=== PATIENT | male | born 1950 | race Caucasian/White ===

== ENCOUNTER 2023-02-25 00:53 | Day surgery (SDC) | payer OTHER, SELFPAY ==
[2023-02-15 13:40] VITALS: BMI 36.6
[2023-02-25 11:31] VITALS: BP 130/81; PULSE 59; RESP 16; TEMP 36.1; O2SAT 99; BMI 36.2
--- NOTE | 2023-02-25 11:48 | WPDANESEPPF ---
Anes - Initial Pre Proc Eval Procedure: Operation Date: 02/25/23 12:30 Proposed Procedures p Screening Colonoscopy - Kg Bradley MD Date/Time: 02/25/23 11:48 Surgeon: Kg Bradley MD Pre Op Diagnosis: neoplasm screening Patient Data Age: 72 Gender: M Height: 1.78 m Weight: 114.6 kg Last Vital Signs Temp 97.0 F L 02/25/23 11:31 Pulse 59 L 02/25/23 11:31 Resp 16 02/25/23 11:31 BP 130/81 02/25/23 11:31 Pulse Ox 99 02/25/23 11:31 O2 Del Method Room Air 02/25/23 11:31 Allergies Allergy/AdvReac Type Severity Reaction Status Date / Time No Known Allergies Allergy Unknown Verified 02/25/23 11:30 Home Medications Medication Instructions Recorded Confirmed Type No Home Medications 01/17/23 02/25/23 History Patient hx anesthesia problems: none Family hx anesthesia problems: none Results Review: All pre-operative results and documents have been reviewed as part of the pre-operative evaluation. [facility] Family History Family History Father Patient's father is , Onset Age: 23 Other Cerebrovascular accident Family history of allergic disorder Family history of cardiovascular disease Social History Social History (Updated 01/25/23 @ 14:55 by Ely Low MA) Smoking status: Never smoker Alcohol intake: current Drinks per week: 1 Substance use: never Substance use type: does not use Lack of Transportation: No Lack of Food: Never True Current Housing: Decline to Answer Concerned About Future Housing: Decline to Answer Difficulty Paying Gas/Electric Bills: Decline to Answer Difficulty Paying for Meds: Decline to Answer Currently Unemployed: Decline to Answer Education: Decline to Answer Difficulty w/ Childcare or Family Care: Decline to Answer Living arrangements: alone Spiritual care concerns: No Anes - Eval Final PreProcedure Day of Procedure 02/25/23 11:48 Patient weight: obese Heart: regular rate and rhythm Lungs: clear to auscultation Airway: Mallampati scale class II Neurological: alert and oriented Last oral intake: >/= 8 hours ASA classification: II Emergent: no Anesthetic plan: proceed Anesthesia type and monitoring: general GIVS and standard monitoring Results Review: All pre-operative results and documents have been reviewed as part of the pre-operative evaluation. Informed Consent: The patient's anesthetic plan and its attendant risks and benefits were discussed with the patient/family/POA. Questions were solicited and answers provided to the satisfaction of the patient/family/POA.
[2023-02-25] MEDS: LACTATED RINGERS 1,000 ML 150 ML IV CONT (11:53)
--- NOTE | 2023-02-25 12:05 | PM.HPGS ---
History of Present Illness History of Present Illness Consent: Risks, benefits, and alternatives have been discussed and questions answered. Patient agrees to proceed with procedure. Chief complaint: neoplasm screening Narrative: Sven Murray is a 72 year old male here for first screening colonoscopy, had + cologuard Review of Systems Constitutional: Constitutional: Denies headache(s) and Denies weakness Eyes: Eyes: Denies blurry vision ENT: Reports Normal hearing present, Denies headache(s) and Denies neck pain Cardiovascular: Cardiovascular: Denies chest pain and Denies dyspnea Respiratory: Respiratory: Denies dyspnea Gastrointestinal: Gastrointestinal: Reports no additional gastrointestinal complaints Genitourinary: Genitourinary: Denies dysuria Musculoskeletal: Musculoskeletal: Denies neck pain Integumentary/Breasts: Skin/Breast: Denies dry skin Neurologic: Reports Normal hearing present, Denies headache(s) and Denies weakness Psychiatric: Psychiatric: Denies anxiety Endocrine: Endocrine: Denies change in body appearance Hematologic/Lymphatic: Hematologic/Lymphatic: Denies easy bleeding Allergic/Immunologic: Allergic/Immunologic: Denies urticaria PMFSH Past Medical History Medical History (Updated 02/25/23 @ 12:06 by Kg Bradley MD) Positive colorectal cancer screening using Cologuard test Family History Family History Father Patient's father is , Onset Age: 23 Other Cerebrovascular accident Family history of allergic disorder Family history of cardiovascular disease Social History Social History (Updated 01/25/23 @ 14:55 by Ely Low MA) Smoking status: Never smoker Alcohol intake: current Drinks per week: 1 Substance use: never Substance use type: does not use Lack of Transportation: No Lack of Food: Never True Current Housing: Decline to Answer Concerned About Future Housing: Decline to Answer Difficulty Paying Gas/Electric Bills: Decline to Answer Difficulty Paying for Meds: Decline to Answer Currently Unemployed: Decline to Answer Education: Decline to Answer Difficulty w/ Childcare or Family Care: Decline to Answer Living arrangements: alone Spiritual care concerns: No Meds Home Medications and Allergies Home Medications Medication Instructions Recorded Confirmed Type No Home Medications 01/17/23 02/25/23 History Allergies Allergy/AdvReac Type Severity Reaction Status Date / Time No Known Allergies Allergy Unknown Verified 02/25/23 11:30 Vital Signs Vital Signs - 24 hr 02/25/23 11:31 Temperature 97.0 F L Pulse Rate 59 L Respiratory Rate 16 Blood Pressure 130/81 Pulse Oximetry 99 Oxygen Delivery Room Air Exam Const: General: comfortable and no acute distress HENMT: Face/Nose/Sinus: Normal nares present Eyes: General: appearance normal, both eyes and all related structures Neck: Neck: no JVD Resp: Auscultation: clear to auscultation bilaterally Cardio: Rate: regular rate Rhythm: regular rhythm GI: Inspection: non-distended GI Palp: Yes Soft to palpation Skin: General skin exam: normal color Neuro: General: gait normal Speech: normal speech Extrem: General: normal to inspection Psych: Mental Status: mental status grossly normal Assessment and Plan Assessment and plan (1) Positive colorectal cancer screening using Cologuard test: Code(s): R19.5 - Other fecal abnormalities Status: Acute Assessment and Plan: colonoscopy
--- NOTE | 2023-02-25 12:39 | SUR.OPER ---
ASCENDING COLON POLYP UNRETRIEVED, DR JOHNSON MADE AWARE, NO NEW ORDERS.
[2023-02-25 12:46] VITALS: BP 114/73; PULSE 49; RESP 16; O2SAT 96
[2023-02-25 12:56] VITALS: BP 112/77; PULSE 50; RESP 16; O2SAT 97
[2023-02-25 13:05] VITALS: BP 123/74; PULSE 50; RESP 16; O2SAT 98
== END 2023-02-25 13:23 | disposition home or self-care (01) ==
PROVIDERS: PCP Emergency Medicine; Visit Provider Internal Medicine Gastroenterology
PROC: 0DJD8ZZ Inspection of Lower Intestinal Tract, Via Natural or Artificial Opening Endoscopic (ICD-10-PCS; CPT 45378; principal; 2023-02-25 12:30)
DX: Z12.11 Encounter for screening for malignant neoplasm of colon (principal); K63.5 Polyp of colon; K57.30 Diverticulosis of large intestine without perforation or abscess without bleeding; K64.8 Other hemorrhoids; R19.5 Other fecal abnormalities; Z82.49 Family history of ischemic heart disease and other diseases of the circulatory system; E66.9 Obesity, unspecified; Z68.36 Body mass index [BMI] 36.0-36.9, adult
CPT/HCPCS: 45385; 88305; J2704; J7120

== ENCOUNTER 2023-12-06 15:40 | Outpatient (CLI) | payer OTHER, SELFPAY ==
[2023-12-06 16:05] LABS: Hematocrit 48.3 % (42.0-52.0); Hemoglobin 16.4 g/dL (14.0-18.0); Mean Corpuscular Hemoglobin 30.5 pg (26-34); Mean Corpuscular Volume 89.8 fl (80-100); Mean Platelet Volume 9.7 fl (7.4-10.4); Platelet Count Result 228 k/mm3 (150-375); Red Blood Count 5.38 M/mm3 (4.6-6.20); Red Cell Distribution Width 13.4 % (11.5-14.5); White Blood Count 6.2 K/mm3 (4.5-10.0)
[2023-12-06 16:15] LABS: Alanine Aminotransferase 22 U/L (6-50); Albumin Level 4.3 g/dL (3.5-5.1); Alkaline Phosphatase 99 U/L (38-126); Anion Gap 8 mmol/L (4-12); Aspartate Amino Transferase 26 U/L (17-59); Bilirubin,Total 0.5 mg/dL (0.2-1.3); Blood Urea Nitrogen 21 mg/dL (9-20); Calcium 9.2 mg/dL (8.4-10.2); Carbon Dioxide 28 mmol/L (22-30); Chloride 105 mmol/L (98-107); Estimated Glomerular Filt Rate 59; Glucose 112 mg/dL (65-110); Potassium 4.8 mmol/L (3.4-5.0); Sodium 141 mmol/L (137-145)
== END 2023-12-06 15:41 | disposition home or self-care (01) ==
LOC: ANHLAB 15:44
PROVIDERS: PCP Emergency Medicine; Visit Provider Emergency Medicine
DX: E03.9 Hypothyroidism, unspecified (principal); E78.5 Hyperlipidemia, unspecified; E55.9 Vitamin D deficiency, unspecified; F41.9 Anxiety disorder, unspecified
CPT/HCPCS: 36415; 80053; 82306; 84443; 85027